=== PATIENT | female | born 1945 | race Two or more races ===

== ENCOUNTER → 2016-12-28 | Outpatient (CLI) | payer OTHER, MEDICAID ==
[~2016-12-28] MED LIST: ADENOSINE 76 MG in GIVE UN-DILUTED 0 ML IV ONE; ADENOSINE 90 MG/30 ML INJ IV ONE
== END | disposition home or self-care (01) ==
LOC: Rad HDHVI 08:46
PROVIDERS: ATTEND Internal Medicine Cardiovascular Disease
DX: I10 Essential (primary) hypertension (principal); R94.31 Abnormal electrocardiogram [ECG] [EKG]; E78.5 Hyperlipidemia, unspecified; R06.02 Shortness of breath; E11.9 Type 2 diabetes mellitus without complications
CPT/HCPCS: 78452; 93005; 93306; 96374; 96375; A9500; J0153

== ENCOUNTER 2017-03-26 14:28 | Inpatient (IN) | payer OTHER, MEDICAID ==
[~2017-03-26] VITALS: Ht 162.6 cm; Wt 93.0 kg
[2017-03-26 16:00] LABS: Basophils # (auto) 0.1 uL; Basophils % (auto) 0.8 % (0.0-2.0); Eosinophils # (auto) 0 uL; Eosinophils % (auto) 0.5 % (0.0-7.0); Hematocrit 39.5 % (36.0-46.0); Hemoglobin 13.7 g/dL (12.2-16.2); Lymphocytes # (auto) 1.3 uL; Lymphocytes % (auto) 20.9 % (10.0-50.0); Mean Corpuscular Hemoglobin 30.4 pg (28.0-32.0); Mean Corpuscular Hgb Conc. 34.7 g/dL (32.0-36.0); Mean Corpuscular Volume 87.6 fL (80.0-100.0); Monocytes % (auto) 16.6 % (0.0-12.0); Neutrophils # (auto) 3.7 uL; Neutrophils % (auto) 61.2 % (37.0-80.0); Nucleated Red Blood Cells % 0.1 %; Platelet Count (auto) 238 10^3/uL (140-450); Red Blood Cells 4.51 10^6/uL (4.0-5.20); Red Cell Distribution Width 13.2 % (11.8-14.3)
[2017-03-26 16:31] LABS: Albumin 3.4 g/dL (3.4-5.0); BUN/Creatinine Ratio 11.7; Bilirubin, Total 1.2 mg/dL (0.2-1.0); Calcium 8.6 mg/dL (8.5-10.1); Potassium 4.4 mmol/L (3.5-5.1); Total Protein 7.1 g/dL (6.4-8.2)
[2017-03-26] MEDS ORDERED: SODIUM CHLORIDE 0.9% 1,000 ML IV ONE (17:15)
[2017-03-26 19:45] LABS: INR 0.95 (0.9-1.15); Partial Thromboplastin Time 23.8 sec (22.64-33.71); Prothrombin Time 10.4 sec (9.37-12.3)
[2017-03-26] MEDS ORDERED: cefTRIAXone 1GM/10ml IVPUSH 10 ML IV ONE (21:15)
[2017-03-26] MEDS ORDERED: AZITHROMYCIN 500MG/ 250ML 250 ML IV ONE (22:45)
[2017-03-26] MEDS ORDERED: MORPHINE SULF INJ 2 MG/ML SYRINGE 1ML IV PRN (22:45)
[2017-03-26] MEDS ORDERED: NITROGLYCERIN 0.4 MG SL TAB SL PRN (22:45)
[2017-03-26] MEDS ORDERED: DEXTROSE (50%) 50ML SYRG IV PRN (22:45)
[2017-03-27] VITALS: BP 136/67
[2017-03-27] MEDS ORDERED: InsuLIN REG 1unit/0.01ml Soln (100units/ml) ONE (00:28)
[2017-03-27] MEDS: InsuLIN REG 1unit/0.01ml Soln (100units/ml) SC SCH ×5 (01:05→22:49)
[2017-03-27] MEDS: SODIUM CHLORIDE 0.9% 1,000 ML IV SCH ×2 (01:45→13:35)
[2017-03-27 05:00] VITALS: BP 158/76
[2017-03-27] MEDS ORDERED: LEVEMIR SC (05:54)
[2017-03-27] MEDS ORDERED: ENAL2.5T PO (05:54)
[2017-03-27] MEDS ORDERED: INSLISPI SC (05:54)
[2017-03-27] MEDS ORDERED: ASPI81CH43 PO (05:54)
[2017-03-27 06:19] LABS: Anion Gap 9 (5-15); BUN/Creatinine Ratio 21.3; Blood Urea Nitrogen 20 mg/dL (7-18); Calcium 8.2 mg/dL (8.5-10.1); Carbon Dioxide 25 mmol/L (21-32); Chloride 102 mmol/L (98-107); GFR African American 76 mL/min; GFR Non-African American 63 mL/min; Glucose 299 mg/dL (74-106); Sodium 136 mmol/L (136-145)
[2017-03-27] MEDS: ACCU-CHEK COMFORT CURVE STRIP VI SCH ×4 (06:54→22:29)
[2017-03-27] MEDS ORDERED: ACCU-CHEK COMFORT CURVE STRIP VI SCH (07:00)
[2017-03-27 07:46] LABS: Hematocrit 38.4 % (36.0-46.0); Mean Corpuscular Hemoglobin 29.8 pg (28.0-32.0); Mean Corpuscular Volume 87.9 fL (80.0-100.0); Platelet Count (auto) 202 10^3/uL (140-450); Red Blood Cells 4.37 10^6/uL (4.0-5.20); Red Cell Distribution Width 13.4 % (11.8-14.3)
[2017-03-27 07:54] LABS: Band Neutrophils % (manual) 0; Basophils % (manual) 0 (0.0-2.0); Blast Cells 0; Metamyelocytes % 0; Myelocytes % 0; Promyelocytes % 0; Reactive Lymphocytes 0
[2017-03-27 08:23] LABS: Eosinophils % (manual) 1 (0-7); Lymphocytes % (manual) 31 (10.0-50.0); Monocytes % (manual) 19 (0-12)
[2017-03-27 09:00] VITALS: BP 185/78
[2017-03-27] MEDS: AZITHROMYCIN 500MG/ 250ML 250 ML IV SCH (10:29)
[2017-03-27 13:00] VITALS: BP 123/68
[2017-03-27] MEDS ORDERED: cefTRIAXone 1GM/10ml IVPUSH 10 ML IV ONE ×2 (14:30→17:45)
[2017-03-27] MEDS ORDERED: MORPHINE SULFATE 4 MG/ML SYR/VIAL IV PRN (14:30)
[2017-03-27] MEDS ORDERED: OSELTAMIVIR 75 MG CAP PO ONE (14:30)
[2017-03-27] MEDS ORDERED: VITAMINS A & D (TOPICAL) OINT 5GM TOP PRN (16:15)
[2017-03-27 17:00] VITALS: BP 140/52
[2017-03-27] MEDS: IPRATROPIUM BROM 0.5 MG/2.5ML INH SOL NEB SCH (19:26)
[2017-03-27] MEDS: ALBUTEROL SULF 2.5 MG/0.5ML(0.5%) NEB SOLN NEB SCH (19:26)
[2017-03-27] MEDS: OSELTAMIVIR 75 MG CAP PO SCH (21:44)
[2017-03-27 22:00] VITALS: BP 151/63
[2017-03-27] MEDS ORDERED: InsuLIN REG 1unit/0.01ml Soln (100units/ml) SC SCH (22:00)
[2017-03-27] MEDS: INSULIN DETEMIR(LEVEMIR) 1unit/0.01ml Soln (100units/ml) SC SCH (22:50)
[2017-03-28] MEDS: SODIUM CHLORIDE 0.9% 1,000 ML IV SCH ×2 (04:33→18:19)
[2017-03-28 05:00] VITALS: BP 147/111
[2017-03-28] MEDS: IPRATROPIUM BROM 0.5 MG/2.5ML INH SOL NEB SCH ×4 (06:00→19:36)
[2017-03-28] MEDS: ALBUTEROL SULF 2.5 MG/0.5ML(0.5%) NEB SOLN NEB SCH ×4 (06:00→19:36)
[2017-03-28 06:26] LABS: Hematocrit 37.1 % (36.0-46.0); Hemoglobin 12.7 g/dL (12.2-16.2); Mean Corpuscular Hemoglobin 29.9 pg (28.0-32.0); Mean Corpuscular Hgb Conc. 34.3 g/dL (32.0-36.0); Platelet Count (auto) 191 10^3/uL (140-450); Red Blood Cells 4.26 10^6/uL (4.0-5.20); Red Cell Distribution Width 13.2 % (11.8-14.3)
[2017-03-28 06:27] LABS: Band Neutrophils % (manual) 0; Basophils % (manual) 0 (0.0-2.0); Blast Cells 0; Metamyelocytes % 0; Myelocytes % 0; Promyelocytes % 0; Reactive Lymphocytes 0
[2017-03-28 06:35] LABS: BUN/Creatinine Ratio 19.2; Calcium 8.5 mg/dL (8.5-10.1); Potassium 4.7 mmol/L (3.5-5.1)
[2017-03-28] MEDS: INSULIN DETEMIR(LEVEMIR) 1unit/0.01ml Soln (100units/ml) SC SCH ×2 (06:43→22:21)
[2017-03-28] MEDS: ACCU-CHEK COMFORT CURVE STRIP VI SCH ×4 (06:44→22:27)
[2017-03-28] MEDS: InsuLIN REG 1unit/0.01ml Soln (100units/ml) SC SCH ×4 (06:44→22:20)
[2017-03-28 07:40] LABS: Eosinophils % (manual) 1 (0-7); Lymphocytes % (manual) 29 (10.0-50.0); Monocytes % (manual) 20 (0-12)
[2017-03-28 08:25] VITALS: BP 114/61
[2017-03-28] MEDS: cefTRIAXone 1GM/10ml IVPUSH 10 ML IV SCH (09:40)
[2017-03-28] MEDS: AZITHROMYCIN 500MG/ 250ML 250 ML IV SCH (09:40)
[2017-03-28] MEDS: OSELTAMIVIR 75 MG CAP PO SCH ×2 (09:40→22:17)
[2017-03-28 13:00] VITALS: BP 117/58
[2017-03-28 14:47] VITALS: BP 117/58
[2017-03-28 16:42] VITALS: BP 135/75
[2017-03-28 21:47] VITALS: BP 127/87
[2017-03-29] MEDS ORDERED: ACETAMINOPHEN 500 MG TAB PO PRN (00:45)
[2017-03-29] MEDS: HYDROcodone-ACET 5/325MG TAB PO PRN ×2 (00:55→22:33)
[2017-03-29] MEDS: SODIUM CHLORIDE 0.9% 1,000 ML IV SCH (04:53)
[2017-03-29 05:00] VITALS: BP 164/79
[2017-03-29 05:30] VITALS: BP 131/67
[2017-03-29] MEDS: ACCU-CHEK COMFORT CURVE STRIP VI SCH ×4 (06:32→22:09)
[2017-03-29] MEDS: INSULIN DETEMIR(LEVEMIR) 1unit/0.01ml Soln (100units/ml) SC SCH ×2 (06:32→22:33)
[2017-03-29] MEDS: InsuLIN REG 1unit/0.01ml Soln (100units/ml) SC SCH ×4 (06:32→22:33)
[2017-03-29] MEDS: IPRATROPIUM BROM 0.5 MG/2.5ML INH SOL NEB SCH ×4 (07:12→18:00)
[2017-03-29] MEDS: ALBUTEROL SULF 2.5 MG/0.5ML(0.5%) NEB SOLN NEB SCH ×4 (07:12→18:00)
[2017-03-29] MEDS: cefTRIAXone 1GM/10ml IVPUSH 10 ML IV SCH (09:25)
[2017-03-29] MEDS: AZITHROMYCIN 250 MG TAB PO SCH (09:30)
[2017-03-29] MEDS: OSELTAMIVIR 75 MG CAP PO SCH ×2 (09:30→22:08)
[2017-03-29 11:59] LABS: Urine Bacteria NONE SEEN /hpf (None Seen); Urine Blood Negative /uL (Negative); Urine Specific Gravity 1.009 (1.001-1.035); Urine WBC 1 /hpf (0 - 5)
[2017-03-29 12:03] VITALS: BP 146/83
[2017-03-29] MEDS ORDERED: TEMAZEPAM 15 MG CAP PO PRN (14:45)
[2017-03-29] MEDS ORDERED: FUROSEMIDE 20 MG/2 ML VIAL IV ONE (14:45)
[2017-03-29] MEDS ORDERED: POTASSIUM CHL 20 Meq TABLET PO ONE (14:45)
[2017-03-29 16:51] VITALS: BP 137/67
[2017-03-29 20:00] VITALS: BP 124/76
[2017-03-29 22:00] VITALS: BP 124/76
[2017-03-29] MEDS: ASCORBIC ACID 500 MG TAB PO SCH (22:08)
[2017-03-30] MEDS: ALBUTEROL SULF 2.5 MG/0.5ML(0.5%) NEB SOLN NEB SCH ×4 (00:21→18:39)
[2017-03-30] MEDS: IPRATROPIUM BROM 0.5 MG/2.5ML INH SOL NEB SCH ×4 (00:21→18:39)
[2017-03-30] MEDS: HYDROcodone-ACET 5/325MG TAB PO PRN ×3 (04:35→22:19)
[2017-03-30 05:00] VITALS: BP 142/68
[2017-03-30] MEDS: ACCU-CHEK COMFORT CURVE STRIP VI SCH ×4 (06:38→22:53)
[2017-03-30] MEDS: InsuLIN REG 1unit/0.01ml Soln (100units/ml) SC SCH ×4 (06:45→22:52)
[2017-03-30] MEDS: INSULIN DETEMIR(LEVEMIR) 1unit/0.01ml Soln (100units/ml) SC SCH ×2 (06:46→22:53)
[2017-03-30 09:00] VITALS: BP 156/75
[2017-03-30] MEDS: cefTRIAXone 1GM/10ml IVPUSH 10 ML IV SCH (09:30)
[2017-03-30] MEDS: ASCORBIC ACID 500 MG TAB PO SCH ×2 (09:31→22:19)
[2017-03-30] MEDS: OSELTAMIVIR 75 MG CAP PO SCH ×2 (09:31→22:19)
[2017-03-30] MEDS: MULTIPLE VITAMINS W/ MINERALS TAB PO SCH (09:31)
[2017-03-30] MEDS: AZITHROMYCIN 250 MG TAB PO SCH (11:17)
[2017-03-30 12:52] VITALS: BP 145/74
[2017-03-30] MEDS ORDERED: FUROSEMIDE 20 MG/2 ML VIAL IV ONE (14:15)
[2017-03-30] MEDS ORDERED: POTASSIUM CHL 20 Meq TABLET PO ONE (14:15)
[2017-03-30 16:40] VITALS: BP 148/66
[2017-03-30 20:00] VITALS: BP 159/86
[2017-03-30 21:59] VITALS: BP 159/86
[2017-03-31] MEDS: ALBUTEROL SULF 2.5 MG/0.5ML(0.5%) NEB SOLN NEB SCH ×3 (00:27→12:10)
[2017-03-31] MEDS: IPRATROPIUM BROM 0.5 MG/2.5ML INH SOL NEB SCH ×3 (00:27→12:11)
[2017-03-31 05:03] VITALS: BP 161/73
[2017-03-31] MEDS: INSULIN DETEMIR(LEVEMIR) 1unit/0.01ml Soln (100units/ml) SC SCH (06:15)
[2017-03-31] MEDS: ACCU-CHEK COMFORT CURVE STRIP VI SCH ×3 (06:15→17:31)
[2017-03-31] MEDS: InsuLIN REG 1unit/0.01ml Soln (100units/ml) SC SCH ×3 (06:15→17:36)
[2017-03-31 09:00] VITALS: BP 128/61
[2017-03-31 09:52] VITALS: BP 128/61
[2017-03-31] MEDS: OSELTAMIVIR 75 MG CAP PO SCH (10:00)
[2017-03-31] MEDS: AZITHROMYCIN 250 MG TAB PO SCH (10:48)
[2017-03-31] MEDS: ASCORBIC ACID 500 MG TAB PO SCH (10:48)
[2017-03-31] MEDS: cefTRIAXone 1GM/10ml IVPUSH 10 ML IV SCH (10:49)
[2017-03-31] MEDS: MULTIPLE VITAMINS W/ MINERALS TAB PO SCH (10:49)
[2017-03-31 17:00] VITALS: BP 120/65
[2017-03-31 18:00] VITALS: BP 120/65
[2017-03-31 18:10] VITALS: BP 120/65
== END 2017-03-31 19:03 | disposition home or self-care (01) | DRG 194 ==
LOC: ER 14:28 → EDBD 14:28 → TELE 14:29 → TELE-WESTW 23:19 → WEST WING 03-30 01:57
PROVIDERS: ADMIT Nurse Practitioner Family; ATTEND Internal Medicine
DX: J10.1 Influenza due to other identified influenza virus with other respiratory manifestations (principal); I50.32 Chronic diastolic (congestive) heart failure; E11.22 Type 2 diabetes mellitus with diabetic chronic kidney disease; E11.65 Type 2 diabetes mellitus with hyperglycemia; I13.0 Hypertensive heart and chronic kidney disease with heart failure and stage 1 through stage 4 chronic kidney disease, or unspecified chronic kidney disease; E86.0 Dehydration; E66.9 Obesity, unspecified; F41.9 Anxiety disorder, unspecified; J98.01 Acute bronchospasm; Z82.49 Family history of ischemic heart disease and other diseases of the circulatory system; Z68.35 Body mass index [BMI] 35.0-35.9, adult; Z79.84 Long term (current) use of oral hypoglycemic drugs; Z79.899 Other long term (current) drug therapy
CPT/HCPCS: 36415; 71010; 80048; 80053; 81001; 82962; 83036; 83735; 83880; 84443; 84484; 85007; 85025; 85027; 85610; 85730; 87400; 94640; 94761; 96374; 97116; 97163; 97530; J1815

== ENCOUNTER 2018-11-21 15:13 | Inpatient (IN) | payer MEDICARE, MEDICAID, OTHER | END 2018-11-29 19:15 | LOC: ER 15:13 → TELE 15:14 → TELE-WESTW 20:45 | PROC: 047N3ZZ Dilation of Left Popliteal Artery, Percutaneous Approach (ICD-10-PCS; principal; 2018-11-27 14:48) | PROC: 047L3ZZ Dilation of Left Femoral Artery, Percutaneous Approach (ICD-10-PCS; 2018-11-27 14:48) | PROC: 04CL3ZZ Extirpation of Matter from Left Femoral Artery, Percutaneous Approach (ICD-10-PCS; 2018-11-27 14:48) | PROC: 047S3ZZ Dilation of Left Posterior Tibial Artery, Percutaneous Approach (ICD-10-PCS; 2018-11-27 14:48) | PROC: B41G1ZZ Fluoroscopy of Left Lower Extremity Arteries using Low Osmolar Contrast (ICD-10-PCS; 2018-11-27 14:48) | PROC: B41F1ZZ Fluoroscopy of Right Lower Extremity Arteries using Low Osmolar Contrast (ICD-10-PCS; 2018-11-27 14:48) | PROC: 0Y6W0Z0 Detachment at Left 4th Toe, Complete, Open Approach (ICD-10-PCS; 2018-11-27 14:48) | DX: M86.9 Osteomyelitis, unspecified (principal); L03.116 Cellulitis of left lower limb; I13.0 Hypertensive heart and chronic kidney disease with heart failure and stage 1 through stage 4 chronic kidney disease, or unspecified chronic kidney disease; E11.65 Type 2 diabetes mellitus with hyperglycemia; R00.1 Bradycardia, unspecified; E11.22 Type 2 diabetes mellitus with diabetic chronic kidney disease; N18.3 Chronic kidney disease, stage 3 (moderate); I25.10 Atherosclerotic heart disease of native coronary artery without angina pectoris; I50.9 Heart failure, unspecified; I73.9 Peripheral vascular disease, unspecified; E66.9 Obesity, unspecified; E11.69 Type 2 diabetes mellitus with other specified complication ==

== ENCOUNTER 2019-01-21 07:06 | Day surgery (SDC) | payer MEDICARE, MEDICAID ==
[~2019-01-21] VITALS: Ht 162.6 cm; Wt 89.0 kg
[~2019-01-21 07:06] MED LIST changes: -ADENOSINE 76 MG in GIVE UN-DILUTED 0 ML IV ONE; -ADENOSINE 90 MG/30 ML INJ IV ONE; +ASPI81CH43 PO; +CLOP75TA41 PO; +ENAL2.5T PO; +FURO40TA4 PO; +INSLISPI SC; +LEVEMIR SC; +NITR0.4S29 SL; +PANT40TA2 PO
[2019-01-21] MEDS ORDERED: IODIXANOL 320MG/ML 100ML BTL IV ONE (07:36)
[2019-01-21] MEDS ORDERED: LIDOCAINE 2%HCL (LOCAL ANESTH.) INJ 20ML MDV ONE (07:36)
[2019-01-21] MEDS ORDERED: ANGIOMAX 250 MG VIAL IV ONE (07:59)
[2019-01-21] MEDS ORDERED: SODIUM CHL 0.9% 50 ML ONE (08:01)
[2019-01-21] MEDS ORDERED: fentaNYL CITRATE 100 MCG/2 ML VL ONE (08:01)
[2019-01-21] MEDS ORDERED: MIDAZOLAM HCL 1MG/1ML-2 ML VIAL ONE ×2 (08:01→08:54)
[2019-01-21] MEDS ORDERED: VERAPAMIL 2.5MG/ML INJ 2ML VIAL IV ONE (08:11)
[2019-01-21] MEDS ORDERED: CLOPIDOGREL BISULFATE 75 MG TAB PO ONE (09:30)
[2019-01-21] MEDS ORDERED: ACETAMINOPHEN 500 MG TAB PO PRN (09:30)
[2019-01-21] MEDS ORDERED: ASPirin 81 mg TAB PO ONE (09:30)
== END 2019-01-21 14:26 ==
LOC: CATH 07:06
PROVIDERS: ATTEND Internal Medicine
DX: I70.211 Atherosclerosis of native arteries of extremities with intermittent claudication, right leg (principal); I70.292 Other atherosclerosis of native arteries of extremities, left leg; I25.10 Atherosclerotic heart disease of native coronary artery without angina pectoris; I11.0 Hypertensive heart disease with heart failure; I50.9 Heart failure, unspecified; F41.9 Anxiety disorder, unspecified; E78.5 Hyperlipidemia, unspecified; E11.51 Type 2 diabetes mellitus with diabetic peripheral angiopathy without gangrene; Z95.818 Presence of other cardiac implants and grafts; Z79.4 Long term (current) use of insulin; Z79.82 Long term (current) use of aspirin; Z79.899 Other long term (current) drug therapy; Z87.891 Personal history of nicotine dependence; Z88.2 Allergy status to sulfonamides; Z95.828 Presence of other vascular implants and grafts; Z90.710 Acquired absence of both cervix and uterus; Z88.0 Allergy status to penicillin; Z95.5 Presence of coronary angioplasty implant and graft; Z86.73 Personal history of transient ischemic attack (TIA), and cerebral infarction without residual deficits
CPT/HCPCS: 37225; C1724; C1725; C1760; C1769; C1894; J0583; J1644; J2250; J3010; Q9967; 99152; 99153